=== PATIENT | female | born 1955 | race Two or more races ===

== ENCOUNTER 2019-09-22 17:01 | Emergency (ER) | payer OTHER ==
[~2019-09-22] VITALS: Ht 139.7 cm; Wt 60.0 kg
[2019-09-22] MEDS ORDERED: ONDANSETRON 2MG/ML, 2ML ONE (17:40)
[2019-09-22] MEDS ORDERED: MORPHINE SULFATE 4 MG/ML, 1ML ONE (17:41)
[2019-09-22] MEDS ORDERED: MORPHINE SULFATE 4 MG/ML, 1ML IVPush ONE (18:00)
[2019-09-22] MEDS ORDERED: ONDANSETRON 2MG/ML, 2ML IVPush ONE (18:00)
[2019-09-22] MEDS ORDERED: KETOROLAC 30 MG/1 ML IM ONE (18:00)
[2019-09-22] MEDS ORDERED: KETOROLAC 30 MG/1 ML ONE (18:05)
--- NOTE | 2019-09-22 18:12 | NUR ---
PT HAS CO ABDOMINAL PAIN ON BOTH LOWER FLANKS STARTING YESTERDAY. DENIES TROULE VOIDING. DENIES N/V/D// DENIES COUGH AND SOB.
[2019-09-22 18:26] LABS: MEAN CORPUSCULAR HEMOGLOBIN 30.3 pg (27.0-34.8); MEAN PLATELET VOLUME 6.6 fL (7.4-10.4); PLATELET COUNT 285 x10^3/uL (130-400); RED BLOOD COUNT 4.86 x10^6/uL (3.82-5.3)
[2019-09-22 18:39] LABS: ALANINE AMINOTRANSFERASE 35 U/L (12-78); ALBUMIN 3.4 g/dL (3.4-5.0); ANION GAP 6 mmol/L (5-15); CALCIUM 9.6 mg/dL (8.5-10.1); CHLORIDE 107 mmol/L (98-107); CREATININE 0.93 mg/dL (0.55-1.02)
[2019-09-22 18:41] LABS: ALKALINE PHOSPHATASE 90 U/L (45-117); BILIRUBIN,TOTAL 0.9 mg/dL (0.2-1.0); TOTAL PROTEIN 8.3 g/dL (6.4-8.2)
[2019-09-22 18:45] LABS: BASOPHILS # (AUTO) 0.01 x10^3/uL (0-0.1); BASOPHILS % (AUTO) 0 % (0-1); EOSINOPHILS # (AUTO) 0.09 x10^3/uL (0-0.4); EOSINOPHILS % (AUTO) 1 % (1-7); LYMPHOCYTES # (AUTO) 1.89 x10^3/uL (1-3.4); LYMPHOCYTES % (AUTO) 10 % (22-44); MD SCAN; MONOCYTES # (AUTO) 0.66 x10^3/uL (0.2-0.8); MONOCYTES % (AUTO) 4 % (2-9); NEUTROPHILS # (AUTO) 15.72 x10^3/uL (1.8-6.8); NEUTROPHILS % (AUTO) 86 % (42-75)
--- NOTE | 2019-09-22 18:50 | NUR ---
REPORT TO PATRICIO
--- NOTE | 2019-09-22 18:53 | NUR ---
Report received from AZAM Braswell. This RN to assume care. Awaiting xray.
[2019-09-22 19:24] LABS: MICROSCOPIC NOT IND
--- NOTE | 2019-09-22 20:14 | NUR ---
Patient to CT.
[2019-09-22 21:38] VITALS: BP 136/63
--- NOTE | 2019-09-22 21:39 | NUR ---
Discharge instructions given. All questions and concerns addressed. Patient ambulatory with a steady gait. Belongings with patient.
[2019-09-22] MEDS ORDERED: OMNIPAQUE 350 MG/ML, 100ML BOTTLE ONE (23:06)
== END 2019-09-22 21:40 | disposition home or self-care (01) ==
LOC: ED 20:41
DX: K52.9 Noninfective gastroenteritis and colitis, unspecified (principal); R93.5 Abnormal findings on diagnostic imaging of other abdominal regions, including retroperitoneum
CPT/HCPCS: 36415; 74177; 80053; 81003; 83690; 85025; 96372; 99285; J1885; Q9967